=== PATIENT | female | born 1990 | race American Indian/Alaskan Native ===

== ENCOUNTER 2020-01-14 00:40 | Observation (INO) | payer OTHER ==
[2020-01-14] MEDS ORDERED: SODIUM CHLORIDE 0.9% 1000 ML 1,000 ML IV ONE (00:54)
[2020-01-14] MEDS ORDERED: levETIRAcetam 1000 MG/NS 0.75% 1,000 MG/100 ML BAG IV ONE (00:55)
--- NOTE | 2020-01-14 00:56 | Emergency Department Report ---
ED Altered Mental Status HPI - General Chief Complaint: Altered Mental Status Stated Complaint: FAINT/CHEST PAIN PUI?: No Time Seen by Provider: 01/14/20 00:42 Source: EMS Mode of arrival: Stretcher Limitations: Altered Mental Status - History of Present Illness Initial Comments: Patient is a 29-year-old female that presents emergency room for a syncopal episode and altered mental status. Patient brought in by EMS. Report received from EMS. EMS states that the patient was at work and passed out. Patient passed out into the arms of her sister. Patient did not sustain any trauma. Patient had brief loss of consciousness. When the patient woke up the patient was altered. Patient was initially altered and not answering questions. Patient is now answering yes/no questions. Patient still has some confusion and decreased responsiveness. Patient's vital signs are stable. Patient's past medical history significant for anxiety and asthma. MD Complaint: altered mental status, decreased responsiveness ED Review of Systems ROS: Stated complaint: FAINT/CHEST PAIN Other details as noted in HPI Comment: Unobtainable due to pts medical conditions ED Past Medical Hx - Past Medical History Previous Medical History?: Yes Hx Psychiatric Treatment: Yes (Anxiety) Hx Asthma: Yes - Surgical History Past Surgical History?: No - Family History Family history: no significant - Social History Smoking Status: Never Smoker Substance Use Type: None ED Physical Exam - General Limitations: Altered Mental Status General appearance: in no apparent distress, lethargic - Head Head exam: Present: atraumatic, normocephalic - Eye Eye exam: Present: normal appearance, PERRL Pupils: Present: normal accommodation - ENT ENT exam: Present: mucous membranes dry - Neck Neck exam: Present: normal inspection - Respiratory Respiratory exam: Present: normal lung sounds bilaterally. Absent: respiratory distress - Cardiovascular Cardiovascular Exam: Present: regular rate, normal rhythm. Absent: systolic murmur, diastolic murmur, rubs, gallop - GI/Abdominal GI/Abdominal exam: Present: soft, normal bowel sounds - Extremities Exam Extremities exam: Present: normal inspection - Back Exam Back exam: Present: normal inspection - Neurological Exam Neurological exam: Present: altered - Psychiatric Psychiatric exam: Present: normal affect, normal mood - Skin Skin exam: Present: warm, dry, intact, normal color. Absent: rash - Assessment Assessment Interval: Baseline - Level of Consciousness 1a. Level of Consciousness: arousable/minor stimuli - LOC Questions 1b. LOC Questions: answers 1 question correctly - LOC Command 1c. LOC Commands: performs 1 task correctly - Best Gaze 2. Best Gaze: normal - Visual 3. Visual: no visual loss - Facial Palsy 4. Facial Palsy: normal symmetrical movement - Motor Arm 5a. Motor Arm Left: no drift 5b. Motor Arm Right: no drift - Motor Leg 6a. Motor Leg Left: no drift 6b. Motor Leg Right: no drift - Limb Ataxia 7. Limb Ataxia: absent - Sensory 8. Sensory: normal - Best Language 9. Best Language: no aphasia - Dysarthria 10. Dysarthria: normal - Extinction and Inattention 11. Extinction/Inattention: no abnormality - Scoring Total Score: 3 Stroke Severity: Minor Stroke ED Course Vital Signs 01/14/20 01/14/20 01/14/20 00:58 01:00 01:01 Temperature 97.9 F Pulse Rate 60 66 71 Respiratory 19 21 20 Rate Blood Pressure 138/94 138/94 O2 Sat by Pulse 98 97 99 Oximetry 01/14/20 01:32 Temperature Pulse Rate 60 Respiratory 13 Rate Blood Pressure O2 Sat by Pulse 100 Oximetry - Reevaluation(s) Reevaluation #1: Patient had a syncopal episode and appears to be postictal at this time. Patient is having postevent confusion. Patient will have a seizure and altered mental status work-up. Labs and CTs have been placed in the system. 01/14/20 00:55 Reevaluation #2: While patient was in CT, pharmacy technician program director reports shaking, seizure-like activity. Patient was not seizing and patient still confused. 01/14/20 01:18 Reevaluation #3: Patient is now answering questions appropriately. Patient will require seizure work-up. I discussed all results with patient. I discussed plan of care with patient. Patient agrees with plan of care and admission. Patient to be admitted to the hospitalist service. 01/14/20 02:19 - Consultations Consultation #1: I discussed all results with patient. I discussed plan of care with patient. Patient agrees with plan of care and admission. Patient to be admitted to the hospitalist service. 01/14/20 02:20 - Lab Data Result diagrams: 01/14/20 01:05 01/14/20 01:05 Lab Results 10/30/20 10/30/20 10/30/20 Range/Units 01:05 01:05 01:05 WBC 4.2 L (4.5-11.0) K/mm3 RBC 4.30 (3.65-5.03) M/mm3 Hgb 12.4 (10.1-14.3) gm/dl Hct 37.5 (30.3-42.9) % MCV 87 (79-97) fl MCH 29 (28-32) pg MCHC 33 (30-34) % RDW 13.8 (13.2-15.2) % Plt Count 203 (140-440) K/mm3 Lymph % (Auto) 21.5 (13.4-35.0) % [place] % (Auto) 8.4 H (0.0-7.3) % Eos % (Auto) 0.6 (0.0-4.3) % Baso % (Auto) 0.2 (0.0-1.8) % Lymph # (Auto) 0.9 L (1.2-5.4) K/mm3 [place] # (Auto) 0.4 (0.0-0.8) K/mm3 Eos # (Auto) 0.0 (0.0-0.4) K/mm3 Baso # (Auto) 0.0 (0.0-0.1) K/mm3 Seg Neutrophils % 69.3 (40.0-70.0) % Seg Neutrophils # 2.9 (1.8-7.7) K/mm3 Sodium 141 (137-145) mmol/L Potassium 3.6 (3.6-5.0) mmol/L Chloride 105.9 (98-107) mmol/L Carbon Dioxide 22 (22-30) mmol/L Anion Gap 17 mmol/L BUN 12 (7-17) mg/dL Creatinine 1.0 (0.6-1.2) mg/dL Estimated GFR > 60 ml/min BUN/Creatinine Ratio 12 % Glucose 100 (65-100) mg/dL Lactic Acid 1.00 (0.7-2.0) mmol/L Calcium 8.7 (8.4-10.2) mg/dL Total Bilirubin 0.40 (0.1-1.2) mg/dL Direct Bilirubin < 0.2 (0-0.2) mg/dL Indirect Bilirubin 0.2 mg/dL AST 19 (5-40) units/L ALT 14 (7-56) units/L Alkaline Phosphatase 80 (35-129) units/L Total Creatine Kinase 162 H (30-135) units/L Total Protein 7.3 (6.3-8.2) g/dL Albumin 4.1 (3.9-5) g/dL Albumin/Globulin Ratio 1.3 % Urine Color (Yellow) Urine Turbidity (Clear) Urine pH (5.0-7.0) Ur Specific [place] (1.003-1.030) Urine Protein (Negative) mg/dL Urine Glucose (UA) (Negative) mg/dL Urine Ketones (Negative) mg/dL Urine Blood (Negative) Urine Nitrite (Negative) Urine Bilirubin (Negative) Urine Urobilinogen (<2.0) mg/dL Ur Leukocyte Esterase (Negative) Urine WBC (Auto) (0.0-6.0) /HPF Urine RBC (Auto) (0.0-6.0) /HPF U Epithel Cells (Auto) (0-13.0) /HPF Plasma/Serum Alcohol (0-0.07) % 01/14/20 01/14/20 Range/Units 01:05 01:56 WBC (4.5-11.0) K/mm3 RBC (3.65-5.03) M/mm3 Hgb (10.1-14.3) gm/dl Hct (30.3-42.9) % MCV (79-97) fl MCH (28-32) pg MCHC (30-34) % RDW (13.2-15.2) % Plt Count (140-440) K/mm3 Lymph % (Auto) (13.4-35.0) % [place] % (Auto) (0.0-7.3) % Eos % (Auto) (0.0-4.3) % Baso % (Auto) (0.0-1.8) % Lymph # (Auto) (1.2-5.4) K/mm3 [place] # (Auto) (0.0-0.8) K/mm3 Eos # (Auto) (0.0-0.4) K/mm3 Baso # (Auto) (0.0-0.1) K/mm3 Seg Neutrophils % (40.0-70.0) % Seg Neutrophils # (1.8-7.7) K/mm3 Sodium (137-145) mmol/L Potassium (3.6-5.0) mmol/L Chloride (98-107) mmol/L Carbon Dioxide (22-30) mmol/L Anion Gap mmol/L BUN (7-17) mg/dL Creatinine (0.6-1.2) mg/dL Estimated GFR ml/min BUN/Creatinine Ratio % Glucose (65-100) mg/dL Lactic Acid (0.7-2.0) mmol/L Calcium (8.4-10.2) mg/dL Total Bilirubin (0.1-1.2) mg/dL Direct Bilirubin (0-0.2) mg/dL Indirect Bilirubin mg/dL AST (5-40) units/L ALT (7-56) units/L Alkaline Phosphatase (35-129) units/L Total Creatine Kinase (30-135) units/L Total Protein (6.3-8.2) g/dL Albumin (3.9-5) g/dL Albumin/Globulin Ratio % Urine Color Yellow (Yellow) Urine Turbidity Clear (Clear) Urine pH 6.0 (5.0-7.0) Ur Specific [place] 1.012 (1.003-1.030) Urine Protein <15 mg/dl (Negative) mg/dL Urine Glucose (UA) Neg (Negative) mg/dL Urine Ketones Neg (Negative) mg/dL Urine Blood Neg (Negative) Urine Nitrite Neg (Negative) Urine Bilirubin Neg (Negative) Urine Urobilinogen < 2.0 (<2.0) mg/dL Ur Leukocyte Esterase Mod (Negative) Urine WBC (Auto) 11.0 H (0.0-6.0) /HPF Urine RBC (Auto) 1.0 (0.0-6.0) /HPF U Epithel Cells (Auto) 2.0 (0-13.0) /HPF Plasma/Serum Alcohol < 0.01 (0-0.07) % - EKG Data -: EKG Interpreted by Pa EKG shows normal: sinus rhythm, axis, intervals, QRS complexes, ST-T waves Rate: normal - Radiology Data Radiology results: report reviewed CT HEAD/BRAIN WO CON INDICATION / CLINICAL INFORMATION: Altered Mental Status. TECHNIQUE: All CT scans at this location are performed using CT dose reduction for ALARA by means of automated exposure control. COMPARISON: None available. FINDINGS: The ventricular system is normal in size and configuration. No focal lesion or mass effect is seen. There is no evidence of intracranial hemorrhage or acute major vessel occlusion. The calvarium is intact. The visualized paranasal sinuses and mastoid air cells are clear. IMPRESSION: No acute abnormality. - Medical Decision Making Patient is a 29-year-old female that presents emergency room with altered mental status and syncopal episode. The patient had an seizure-like activity and CT witnessed by our pharmacy technician program director. Patient was confused early on . After patient BMIs multiple times the patient became alert and oriented x3. Patient is confused about the event. Patient had postevent confusion. Patient had labs done which were essentially unremarkable except for a UTI. Patient had a head CT which was negative for acute finding. Patient required a new onset seizure work-up and a PEG in house. Patient admitted to the hospital service for further evaluation treatment. - Differential Diagnosis Seizure, confusion, altered mental status, syncope, electrolyte imbalance Critical Care Time: Yes Critical care time in (mins) excluding proc time.: 35 Critical care attestation.: If time is entered above; I have spent that time in minutes in the direct care of this critically ill patient, excluding procedure time. Critical Care Time: 35 minutes ED Disposition Clinical Impression: Confusion, Seizure-like activity Syncope Qualifiers: Syncope type: unspecified Qualified Code(s): R55 - Syncope and collapse Altered mental state Qualifiers: Altered mental status type: unspecified Qualified Code(s): R41.82 - Altered mental status, unspecified UTI (urinary tract infection) Qualifiers: Urinary tract infection type: acute cystitis Hematuria presence: with hematuria Qualified Code(s): N30.01 - Acute cystitis with hematuria Disposition: -09 OP ADMIT IP TO THIS HOSP Is pt being admited?: Yes Does the pt Need Aspirin: No Condition: Critical Time of Disposition: 02:19
--- NOTE | 2020-01-14 01:35 | Cat Scan Report ---
CT HEAD/BRAIN WO CON INDICATION / CLINICAL INFORMATION: Altered Mental Status. TECHNIQUE: All CT scans at this location are performed using CT dose reduction for ALARA by means of automated e xposure control. COMPARISON: None available. FINDINGS: The ventricular system is normal in size and configuration. No focal lesion or mass effect is seen. T here is no evidence of intracranial hemorrhage or acute major vessel occlusion. The calvarium is intact. The visualized paranasal sinuses and mastoid air cells are clear. IMPRESSION: No acute abnormality. Signer Name: Andrei Hahn MD Signed: 01/14/2020 1:30 AM Workstation Name: [id number]
[2020-01-14 01:39] LABS: Alanine Aminotransferase 14 units/L (7-56); Albumin 4.1 g/dL (3.9-5); BUN/Creatinine Ratio 12; Blood Urea Nitrogen 12 mg/dL (7-17); Calcium 8.7 mg/dL (8.4-10.2); Hemolysis Index 59
[2020-01-14 01:41] LABS: Basophils % (Auto) 0.2 % (0.0-1.8); Eosinophils % (Auto) 0.6 % (0.0-4.3); Hematocrit 37.5 % (30.3-42.9); Hemoglobin 12.4 gm/dl (10.1-14.3); Lymphocytes # (Auto) 0.9 K/mm3 (1.2-5.4); Lymphocytes % (Auto) 21.5 % (13.4-35.0); Mean Corpuscular HGB Conc 33 % (30-34); Mean Corpuscular Volume 87 fl (79-97); Monocytes # (Auto) 0.4 K/mm3 (0.0-0.8); Monocytes % (Auto) 8.4 % (0.0-7.3); Platelet Count 203 K/mm3 (140-440); Red Cell Distribution Width 13.8 % (13.2-15.2)
[2020-01-14 01:43] LABS: Bilirubin,Direct < 0.2 mg/dL (0-0.2)
[2020-01-14 02:10] LABS: Bilirubin,Urine NEG (Negative); Blood,Urine NEG (Negative); Color,Urine Yellow (Yellow); Protein,Urine <15 mg/dL mg/dL (Negative); Urobilinogen,Urine < 2.0 mg/dL (<2.0)
[2020-01-14] MEDS ORDERED: cefTRIAXone/NS 1 GM/50 ML 1 GM/50 ML BAG IV ONE (02:20)
[2020-01-14 02:22] LABS: Amphetamine Screen,Urine PRESUMPTIVE NEGATIVE; Benzodiazepines Screen,Urine PRESUMPTIVE NEGATIVE; Cannabinoid Screen,Urine PRESUMPTIVE NEGATIVE; Cocaine Screen,Urine PRESUMPTIVE NEGATIVE; Methadone Screen,Urine PRESUMPTIVE NEGATIVE; Opiate Screen,Urine PRESUMPTIVE NEGATIVE
[2020-01-14] MEDS ORDERED: ACETAMINOPHEN 325 MG TAB PO PRN (02:37)
[2020-01-14] MEDS ORDERED: MAGNESIUM HYDROXIDE (MOM) ORAL LIQD UDC PO PRN (02:37)
[2020-01-14] MEDS ORDERED: ONDANSETRON 4 MG/2 ML INJ IV PRN (02:37)
--- NOTE | 2020-01-14 03:01 | History and Physical Report ---
History of Present Illness Date of examination: 01/14/20 Date of admission: 01/14/2020 Chief complaint: Altered Mental Status History of present illness: 29-year-old -[place] female presenting to the emergency room via EMS today for syncopal episode and altered mental status. Most of the history was received from the ER staff. Patient not having any verbal communication. She was said to have passed out while at work today but there was no head injury or any form of trauma. There was said to be a brief loss of consciousness when patient woke up she was said to have a and altered mental status. During the course of her work-up in the emergency room she was said to have exibited some seizure-like activity and therefore placed on Keppra. Work-up in the emergency room reveals a mild UTI, CT scan of the head was unremarkable. Patient be admitted for changes in mental status including possible seizures and a UTI. Past History Past Medical History: other (Asthma, Anxiety) Past Surgical History: No surgical history Social history: no significant social history Family history: no significant family history Medications and Allergies Allergies Allergy/AdvReac Type Severity Reaction Status Date / Time No Known Allergies Allergy Unverified 01/14/20 02:37 Review of Systems ROS unobtainable: due to mental status Exam - Constitutional Vitals: Temp Pulse Resp BP Pulse Ox 97.9 F 60 13 138/94 100 01/14/20 01:01 01/14/20 01:32 01/14/20 01:32 01/14/20 01:01 01/14/20 01:32 General appearance: Present: no acute distress, well-nourished - EENT Eyes: Present: PERRL, EOM intact. Absent: scleral icterus ENT: hearing intact, clear oral mucosa, dentition normal - Neck Neck: Present: supple, normal ROM - Respiratory Respiratory effort: normal Respiratory: bilateral: CTA - Cardiovascular Rhythm: regular Heart Sounds: Present: S1 & S2. Absent: gallop, systolic murmur, diastolic murmur, rub - Extremities Extremities: no ischemia, pulses intact, pulses symmetrical, No edema, Full ROM Peripheral Pulses: within normal limits - Abdominal General gastrointestinal: Present: soft, non-tender, non-distended, normal bowel sounds. Absent: mass - Integumentary Integumentary: Present: clear, warm, dry. Absent: rash - Musculoskeletal Musculoskeletal: strength equal bilaterally - Psychiatric Psychiatric: cooperative, other (Non-Verbal) - Neurologic Neurologic: CNII-XII intact, no focal deficits, moves all extremities Results - Labs CBC & Chem 7: 01/14/20 01:05 01/14/20 01:05 Labs: Abnormal lab results 01/14/20 01/14/20 01/14/20 Range/Units 01:05 01:05 01:56 WBC 4.2 L (4.5-11.0) K/mm3 [place] % (Auto) 8.4 H (0.0-7.3) % Lymph # (Auto) 0.9 L (1.2-5.4) K/mm3 Total Creatine Kinase 162 H (30-135) units/L Urine WBC (Auto) 11.0 H (0.0-6.0) /HPF Assessment and Plan - Patient Problems (1) Altered mental state Current Visit: Yes Status: Acute Qualifiers: Altered mental status type: unspecified Qualified Code(s): R41.82 - Altered mental status, unspecified Plan to address problem: Etiology is unclear. Patient is possibly post ictal. She has no known history of seizure disorder. Will monitor mental status. (2) Seizure-like activity Current Visit: Yes Status: Acute Plan to address problem: We will place on seizure precautions. Patient has been placed on Keppra. We will schedule patient for EEG. We will place consult to neurology for further evaluation and recommendation. (3) UTI (urinary tract infection) Current Visit: Yes Status: Acute Qualifiers: Urinary tract infection type: acute cystitis Hematuria presence: with hematuria Qualified Code(s): N30.01 - Acute cystitis with hematuria Plan to address problem: Patient started on empiric IV antibiotics. (4) DVT prophylaxis Current Visit: Yes Status: Acute Plan to address problem: Patient placed on subcutaneous Lovenox. (5) Full code status Current Visit: Yes Status: Acute
[2020-01-14 04:16] LABS: HCG Qualitative,Urine Negative (Negative)
--- NOTE | 2020-01-14 14:59 | Event Note ---
Date: 01/14/20 29-year-old -[place] female presenting to the emergency room via EMS today for syncopal episode and altered mental status. She was said to have passed out while at work today but there was no head injury or any form of trauma. There was said to be a brief loss of consciousness when patient woke up she was said to have a and altered mental status. During the course of her work-up in the emergency room she was said to have exibited some seizure-like activity and therefore placed on Keppra. Work-up in the emergency room reveals a mild UTI, CT scan of the head was unremarkable. Patient be admitted for changes in mental status including possible seizures and a UTI. Continue current management and plan, follow-up EEG and neurology eval
--- NOTE | 2020-01-14 16:43 | Consultation ---
History of Present Illness Consult date: 01/14/20 Reason for Consult: Seizure-like activity Chief complaint: I passed out. History of present illness: 29 yo female with an episode of loss of consciousness w/ confusion and amnesia to the event. Noted currently w/ "slowness" of thinking. No hx of similar episodes. Notes chest tightness and shorntess of breath prior to the event. Past History Past Medical History: other (Asthma, Anxiety) Past Surgical History: No surgical history Social history: no significant social history Family history: no significant family history Medications and Allergies Allergies Allergy/AdvReac Type Severity Reaction Status Date / Time No Known Allergies Allergy Unverified 01/14/20 02:37 Active Meds: Active Medications Acetaminophen (Tylenol) 650 mg PO Q4H PRN PRN Reason: Pain MILD(1-3)/Fever >100.5/BRANDT Enoxaparin Sodium (Enoxaparin) 40 mg SUB-Q QDAY@2200 LILIANA; Protocol Magnesium Hydroxide (Milk Of Magnesia) 30 ml PO Q4H PRN PRN Reason: Constipation Ondansetron HCl (Zofran) 4 mg IV Q8H PRN PRN Reason: Nausea And Vomiting Sodium Chloride (Sodium Chloride Flush Syringe 10 Ml) 10 ml IV BID LILIANA Last Admin: 01/14/20 09:39 Dose: 10 ml Documented by: Sodium Chloride (Sodium Chloride Flush Syringe 10 Ml) 10 ml IV PRN PRN PRN Reason: LINE FLUSH Review of Systems All systems: negative (except as per HPI;) Physical Examination - Vital Signs Vital Signs: Vital Signs Pulse Resp Pulse Ox 60 19 98 01/14/20 00:58 01/14/20 00:58 01/14/20 00:58 - Additional Exam Additional Exam: Gen: nad, well-nourished; Head: normocephalic; Eyes: no gaze deviation; no ptosis; ENT: normal vocalization; CVS: warm and well-perfused; Pulm: no respiratory distress;; GI: non-distended; Ext: no cyanosis or edema at distal extremities; Skin: no acute rash or hives at distal extremities; Heme: no pathologic bruising or ecchymosis at distal extremities; Neuro: alert, oriented to name, age, month, year, surroundings, no dysarthria, no aphasia, CN 2 - PERRL, visual guido intact, CN 3, 4, 6 - EOMI, CN 5 - facial sensation decreased on right to light touch, CN 7 - facial movement symmetric, CN 8 - hearing grossly intact, CN 9, 10 - uvula midline, CN 11 - shrug symmetric, CN 12 - tongue midline; Motor - at least 3+/5 at right exts w/ a mild drift vs. 4+/5 at left extremities; Sensory - light touch decreased at right arm/foot, Cerebellar - fnf /htsintact, Gait - deferred secondary to fall risk; Results - Laboratory Findings CBC and BMP: 01/14/20 01:05 01/14/20 01:05 Abnormal Lab Findings: Abnormal Labs 01/14/20 01/14/20 01/14/20 01:05 01:05 01:56 WBC 4.2 L [place] % (Auto) 8.4 H Lymph # (Auto) 0.9 L Total Creatine Kinase 162 H Urine WBC (Auto) 11.0 H Assessment and Plan 29 yo female with an episode of loss/change of consciousness w/ confusion and amnesia. 1. Seizure - eeg results pending; MRI Brain w/ wo contrast. 2. TIA - Aspirin 325 mg po qday; MRI Brain w/o contrast; echocardiogram, lipid panel; further testing basedon MRI findings. 3. Family hx of lupus - consider LUIS ANGEL. 4. Chest tightness w/ shortness of breath (prior to the event) - per primary team. Harris Hahn MD Neurology
[2020-01-14] MEDS: ASPIRIN EC 81 MG TAB PO SCH (19:22)
[2020-01-14] MEDS ORDERED: ENOXAPARIN 40 MG/0.4 ML INJ SUB-Q SCH (22:00)
[2020-01-15 08:05] LABS: Basophils % (Auto) 0.5 % (0.0-1.8); Eosinophils % (Auto) 1.7 % (0.0-4.3); Hematocrit 39.8 % (30.3-42.9); Lymphocytes # (Auto) 1.4 K/mm3 (1.2-5.4); Lymphocytes % (Auto) 48.6 % (13.4-35.0); Mean Corpuscular HGB Conc 33 % (30-34); Mean Corpuscular Volume 87 fl (79-97); Monocytes # (Auto) 0.3 K/mm3 (0.0-0.8); Monocytes % (Auto) 12.3 % (0.0-7.3); Platelet Count 224 K/mm3 (140-440); Red Blood Count 4.58 M/mm3 (3.65-5.03); Red Cell Distribution Width 13.6 % (13.2-15.2)
[2020-01-15 08:14] LABS: INR 0.98 (0.87-1.13)
[2020-01-15 08:18] LABS: BUN/Creatinine Ratio 9; Blood Urea Nitrogen 9 mg/dL (7-17); Calcium 9.1 mg/dL (8.4-10.2); Hemolysis Index 5
[2020-01-15] MEDS: ASPIRIN EC 81 MG TAB PO SCH (09:48)
[2020-01-15 12:10] VITALS: BP 113/78
--- NOTE | 2020-01-15 13:06 | XRay Report ---
CHEST 1 VIEW INDICATION / CLINICAL INFORMATION: sob. Possible stroke COMPARISON: None available. FINDINGS: SUPPORT DEVICES: None. HEART / MEDIASTINUM: No significant abnormality. LUNGS / PLEURA: No significant pulmonary or pleural abnormality. No pneumothorax. ADDITIONAL FINDINGS: No significant additional findings. IMPRESSION: 1. No acute findings. Signer Name: Salome Gregorio MD Signed: 01/15/2020 1:01 PM Workstation Name: [id number]
--- NOTE | 2020-01-15 13:38 | Cat Scan Report ---
CT head/brain wo con INDICATION / CLINICAL INFORMATION: 29 years Female; seizure. TECHNIQUE: Routine CT head without contrast. All CT scans at this location are performed using CT dos e reduction for ALARA by means of automated exposure control. COMPARISON: 01/14/2020 FINDINGS: BRAIN / INTRACRANIAL CONTENTS: No acute hemorrhage, mass effect, midline shift, hydrocephalus, or acu te, large territorial infarct. No chronic infarct or atrophy appreciated. No significant white matter abnormality. CRANIOCERVICAL JUNCTION: No significant abnormality. ORBITS: No significant abnormality of visualized orbits. SINUSES / MASTOIDS: No significant abnormality in the visualized paranasal sinuses or mastoid air lillie ls. ADDITIONAL FINDINGS: Prominent soft tissue is seen in the roof the nasopharynx, presumably related to reactive adenoidal tissue. Please clinically correlate. IMPRESSION: 1. No focal mass, hemorrhage, hydrocephalus, or acute, large territorial infarct. Signer Name: Abhinav Borrero MD, III Signed: 01/15/2020 1:33 PM Workstation Name: [id number]
--- NOTE | 2020-01-15 13:49 | Discharge Summary ---
Providers - Providers Date of Admission: 01/14/20 02:23 Date of discharge: 01/15/20 Attending physician: DANIEL OWENS 01/14/20 02:37 Consult to Physician [CONS] Routine Comment: Consulting Provider: KENNY VANEGAS Physician Instructions: Reason For Exam: Seizure like activity Primary care physician: CASTING TESTER Hospitalization Condition: Critical Hospital course: Discharge diagnosis: Syncope and collapse Seizure, new onset - no AED prescribed as this was a first episode UTI with Leukopenia Disposition: [place]- TO HOME OR SELFCARE Time spent for discharge: 34 minutes Core Measure Documentation - Palliative Care Palliative Care/ Comfort Measures: Not Applicable - Core Measures Any of the following diagnoses?: none Exam - Constitutional Vitals: Temp Pulse Resp BP Pulse Ox 98.5 F 74 16 113/78 100 01/15/20 12:01 01/15/20 12:01 01/15/20 12:01 01/15/20 12:01 01/15/20 12:01 General appearance: Present: no acute distress, well-nourished - EENT Eyes: Present: PERRL ENT: hearing intact, clear oral mucosa - Neck Neck: Present: supple, normal ROM - Respiratory Respiratory effort: normal Respiratory: bilateral: CTA - Cardiovascular Heart Sounds: Present: S1 & S2. Absent: rub, click - Extremities Extremities: pulses symmetrical, No edema Peripheral Pulses: within normal limits - Abdominal General gastrointestinal: Present: soft, non-tender, non-distended, normal bowel sounds - Integumentary Integumentary: Present: clear, warm, dry - Musculoskeletal Musculoskeletal: gait normal, strength equal bilaterally - Psychiatric Psychiatric: appropriate mood/affect, intact judgment & insight - Neurologic Neurologic: CNII-XII intact, moves all extremities Plan Activity: advance as tolerated, no driving until cleared by PCP Weight Bearing Status: Non-Weight Bearing Diet: low fat, low salt Follow up with: PRIMARY MD GAY [Primary Care Provider] - 7 Days REANNA HERNANDEZ MD [Staff Physician] - 7 Days Prescriptions: Ciprofloxacin HCl [Ciprofloxacin TAB] 500 mg PO Q12HR #7 tab
--- NOTE | 2020-01-15 14:20 | Cat Scan Report ---
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 TECHNIQUE: Thin cut axial images obtained through the head during IV bolus contrast administration. S agittal, coronal, and 3 plane MIP reconstructions performed by the technologist. NASCET type criteria used evaluate stenoses. Automated exposure control utilized for radiation reduction purposes. COMPARISON: None available. FINDINGS: INTERNAL CAROTID ARTERIES: No significant narrowing appreciated. VERTEBROBASILAR SYSTEM: No significant narrowing appreciated. DISTAL BRANCHES: Distal branches of the anterior, middle, and posterior cerebral arteries are fairly symmetric in appearance and number. ANEURYSM: None identified. ADDITIONAL FINDINGS: Remainder of the surrounding soft tissues are grossly normal. IMPRESSION: No significant abnormality on this CTA of the head. Signer Name: Abhinav Borrero MD, III Signed: 01/15/2020 2:15 PM Workstation Name: [id number]
--- NOTE | 2020-01-15 14:24 | Cat Scan Report ---
CT angio neck INDICATION / CLINICAL INFORMATION: 29 years Female; MAIN. TECHNIQUE: Thin cut axial images obtained through the head during IV bolus contrast administration. S agittal, coronal, and 3 plane MIP reconstructions performed by the technologist. NASCET type criteria used evaluate stenoses. All CT scans at this location are performed using CT dose reduction for ALAR A by means of automated exposure control. COMPARISON: None available. FINDINGS: ARCH: Bovine arch configuration noted. CAROTID ARTERIES: The visualized common and internal carotid arteries are widely patent. VERTEBRAL ARTERIES: Codominant vertebral system seen. No significant stenosis appreciated. ADDITIONAL FINDINGS: Prominent palatine and lingual tonsils are noted, as well as adenoidal tissue. IMPRESSION: No significant stenosis appreciated on this CTA of the neck. Signer Name: Abhinav Borrero MD, III Signed: 01/15/2020 2:20 PM Workstation Name: [id number]
== END 2020-01-15 15:39 | disposition home or self-care (01) ==
LOC: ED 00:40 → 4A 02:23
PROVIDERS: ADMIT Internal Medicine Geriatric Medicine; ATTEND Internal Medicine
DX: G45.9 Transient cerebral ischemic attack, unspecified (principal); R41.82 Altered mental status, unspecified; R56.9 Unspecified convulsions; N30.01 Acute cystitis with hematuria; J45.909 Unspecified asthma, uncomplicated; R29.703 NIHSS score 3; F41.9 Anxiety disorder, unspecified; D72.829 Elevated white blood cell count, unspecified; Z79.82 Long term (current) use of aspirin
CPT/HCPCS: 36415; 70450; 70496; 70498; 71045; 80048; 80053; 80076; 80307; 81001; 81025; 82140; 82550; 85025; 85610; 86038; 87086; 87806; 93005; 95819; 96365; 96366; 96368; 96372; 99291; G0378; J0696; J1650; J1953; J7030; Q9967; 80320; G0480